=== PATIENT | male | born 1955 | race Hispanic/Latino ===

== ENCOUNTER 2019-09-20 15:01 | Inpatient (IN) | payer MEDICARE, OTHER, SELFPAY ==
[~2019-09-20] VITALS: Ht 182.9 cm; Wt 74.9 kg
[2019-09-20] MEDS ORDERED: NITROGLYCERIN 1GM/1 INCH PACKET TD ONE ×2 (15:25→22:11)
[2019-09-20] MEDS ORDERED: ASPIRIN 325 MG TABLET ONE (15:25)
[2019-09-20 15:33] LABS: BASOPHILS % (AUTO) 0.4 % (0.0-5.0); EOSINOPHILS % (AUTO) 0.3 % (0.0-8.0); HEMATOCRIT 37.8 % (42-54); LYMPHOCYTES % (AUTO) 2.9 % (21.0-51.0); MEAN CORPUSCULAR HEMOGLOBIN 27.8 pg (27.0-33.0); MEAN CORPUSCULAR HGB CONC 32.5 g/dL (32.0-36.0); MEAN CORPUSCULAR VOLUME 85.3 fL (79-99); MONOCYTES % (AUTO) 5.5 % (3.0-13.0); PLATELET COUNT (AUTO) 228 K/uL (130-400); RED BLOOD CELL COUNT(AUTO) 4.43 MIL/uL (4.50-6.20); RED CELL DISTRIBUTION WIDTH 13.7 % (11.0-15.5); WHITE BLOOD COUNT (AUTO) 18.8 K/uL (4.8-10.8)
[2019-09-20 15:48] LABS: PARTIAL THROMBOPLASTIN TIME 31.6 SEC (26.3-35.5); PROTHROMBIN TIME 10.8 SEC (9.6-11.6)
[2019-09-20 16:01] LABS: ALBUMIN 3.2 g/dL (3.5-5.0); BILIRUBIN,TOTAL 0.7 mg/dL (0.2-1.0); CREATININE 1.3 mg/dL (0.5-1.5); TOTAL PROTEIN, SERUM 6.9 g/dL (6.0-8.3)
[2019-09-20] MEDS ORDERED: CEFTRIAXONE SODIUM 1 GM ONE (16:31)
[2019-09-20] MEDS ORDERED: AZITHROMYCIN 250 MG TABLET PO ONE (16:32)
[2019-09-20] MEDS ORDERED: INSULIN HUMULIN R 100 UNIT/ML 3ML ONE (16:33)
[2019-09-20] MEDS ORDERED: SODIUM CHLORIDE 0.9% 1000ML 1,000 ML IV ONE (17:31)
[2019-09-20] MEDS ORDERED: ACETAMINOPHEN 325 MG TAB ONE (17:31)
[2019-09-20 18:01] LABS: APPEARANCE,URINE Clear (CLEAR); BILIRUBIN,URINE Negative (NEGATIVE); COLOR,URINE Yellow (YELLOW); GLUCOSE, URINE (UA) >=1000 mg/dL (NEGATIVE); KETONES,URINE Negative (NEGATIVE); LEUKOCYTE ESTERASE ,URINE Negative (NEGATIVE); NITRATE,URINE Negative (NEGATIVE); OCCULT BLOOD,URINE Small (NEGATIVE); PH,URINE 5.5 (5.0-8.0); PROTEIN,URINE POS 2+ mg/dL (NEGATIVE)
[2019-09-20 18:48] LABS: BACTERIA,URINE Few /HPF (None Seen); MUCUS,URINE Few LPF (None Seen); RBC,URINE 0-1 /HPF (0-1); SPERM,URINE Few /HPF (None Seen); SQUAMOUS EPITHELIAL CELL,UR 0-2 /HPF (0-2)
[2019-09-20] MEDS ORDERED: DEXTROSE 50%-WATER 50 ML DISP.SYRIN IV PRN (20:45)
[2019-09-20] MEDS ORDERED: ACETAMINOPHEN 325 MG TAB PO PRN (20:45)
[2019-09-20] MEDS ORDERED: ONDANSETRON HCL 4 MG/2 ML VIAL IV PRN (20:45)
[2019-09-20] MEDS: NITROGLYCERIN 1GM/1 INCH PACKET TD SCH (20:45)
[2019-09-20] MEDS ORDERED: GLUCAGON 1MG KIT 1 MG ML IM PRN (20:45)
[2019-09-20] MEDS ORDERED: MORPHINE SULFATE 2 MG/ML 1ML SYG IVP PRN (20:45)
[2019-09-20] MEDS ORDERED: GUAIFENESIN-DM 200/20 MG 10 ML PO PRN (20:45)
[2019-09-20] MEDS: FAMOTIDINE 20MG TAB 20 MG TAB PO SCH (21:00)
[2019-09-21 01:21] VITALS: BP 140/59
[2019-09-21 04:00] VITALS: BP 161/76
[2019-09-21] MEDS ORDERED: CEFTRIAXONE SODIUM 1 GM IVP SCH (04:00)
[2019-09-21 04:26] LABS: BASOPHILS % (AUTO) 0.3 % (0.0-5.0); EOSINOPHILS % (AUTO) 0.2 % (0.0-8.0); HEMATOCRIT 37.6 % (42-54); LYMPHOCYTES % (AUTO) 3.6 % (21.0-51.0); MEAN CORPUSCULAR HEMOGLOBIN 28.2 pg (27.0-33.0); MEAN CORPUSCULAR HGB CONC 33.2 g/dL (32.0-36.0); MEAN CORPUSCULAR VOLUME 84.7 fL (79-99); MONOCYTES % (AUTO) 4.7 % (3.0-13.0); NEUTROPHILS % (AUTO) 90.4 % (40.0-77.0); PLATELET COUNT (AUTO) 190 K/uL (130-400); RED BLOOD CELL COUNT(AUTO) 4.44 MIL/uL (4.50-6.20); RED CELL DISTRIBUTION WIDTH 13.7 % (11.0-15.5)
[2019-09-21 04:58] LABS: ALANINE AMINOTRANSFERASE 18 U/L (12-78); ALBUMIN 2.9 g/dL (3.5-5.0); ASPARTATE AMINOTRANSFERASE 11 U/L (10-37); BILIRUBIN,TOTAL 0.7 mg/dL (0.2-1.0); CARBON DIOXIDE 25 mmol/L (21-32); CHLORIDE 97 mmol/L (101-111); CHOLESTEROL 165 mg/dL (<200); CREATINE KINASE, TOTAL 38 U/L (21-232); CREATININE 1.1 mg/dL (0.5-1.5); GLOMERULAR FILTR. RATE CALC 71 mL/min (>60); GLUCOSE,RANDOM 320 mg/dL (70-105); HDL CHOLESTEROL 37 mg/dL (29-71); LACTATE DEHYDROGENASE 156 U/L (81-234); LDL DIRECT 113 mg/dL (0-99); MYOGLOBIN 62 ng/mL (10-92); POTASSIUM 3.9 mmol/L (3.5-5.1); SODIUM SERUM 131 mmol/L (136-145); THYROID STIMULATING HORMONE 0.96 uIU/mL (0.36-3.74); TOTAL PROTEIN, SERUM 6.7 g/dL (6.0-8.3); TRIGLYCERIDES 68 mg/dL (30-200); TROPONIN I < 0.04 ng/mL (0.00-0.06); UREA NITROGEN, BLOOD 17 mg/dL (7-18)
[2019-09-21 05:12] LABS: HEMOGLOBIN A1C 9.8 % (4.0-6.0)
[2019-09-21] MEDS: NITROGLYCERIN 1GM/1 INCH PACKET TD SCH ×3 (05:21→21:41)
[2019-09-21] MEDS: ACETAMINOPHEN 325 MG TAB PO PRN (05:21)
[2019-09-21 05:31] LABS: B-TYPE NATRIURETIC PEPTIDE 244 pg/mL (0-100)
[2019-09-21] MEDS ORDERED: SODIUM CHLORIDE 0.9% 1000ML 1,000 ML IV STA (05:58)
[2019-09-21] MEDS: ASPIRIN 81 MG EC TAB PO SCH (07:55)
[2019-09-21] MEDS: FAMOTIDINE 20MG TAB 20 MG TAB PO SCH (07:55)
[2019-09-21 08:00] VITALS: BP 122/66
--- NOTE | 2019-09-21 11:00 | NUR ---
TRANSFERRED TO ROOM 408 VIA W/C WITH BELONGINGS ACCOMPANIED BY THAIS TOUSSAINT.
--- NOTE | 2019-09-21 11:34 | NUR ---
PER PT.'S REQUEST, NOTIFIED HIS SISTER, SANDHYA PALMER, OF TRANSFER TO ROOM 408; SISTER VERBALIZED UNDERSTANDING.
[2019-09-21 11:35] VITALS: BP 132/79
[2019-09-21] MEDS ORDERED: AZITHROMYCIN 500MG+NS 250ML 250 ML IV SCH (12:00)
[2019-09-21 15:04] VITALS: BP 137/73
[2019-09-21] MEDS ORDERED: DEXTROSE 50%-WATER 50 ML DISP.SYRIN IV PRN (16:00)
[2019-09-21] MEDS ORDERED: GLUCAGON 1MG KIT 1 MG ML IM PRN (16:00)
[2019-09-21] MEDS: INSULIN HUMULIN R 100 UNIT/ML 3ML SQ SCH ×2 (16:50→21:43)
[2019-09-21 20:02] VITALS: BP 144/72
[2019-09-21] MEDS: CEFTRIAXONE SODIUM 1 GM IVP SCH (21:41)
[2019-09-22] VITALS (7 sets, daily range): BP systolic 134–159; BP diastolic 61–97
[2019-09-22] MEDS: ACETAMINOPHEN 325 MG TAB PO PRN (04:16)
[2019-09-22] MEDS: NITROGLYCERIN 1GM/1 INCH PACKET TD SCH ×3 (04:17→21:11)
--- NOTE | 2019-09-22 04:24 | NUR ---
TYLENOL 650MG GIVEN PO D/T TEMP OF 101.2, ICE PACKS PLACED ON PT TO FOREHEAD AND NECK. PT DENIES CHILLS OR PAIN.
--- NOTE | 2019-09-22 05:00 | NUR ---
TEMP 100.1, PT CONTINUES WITH ICE PACKS ON.
--- NOTE | 2019-09-22 05:25 | NUR ---
TEMP 98.1, REMOVED ICE PACKS.
[2019-09-22] MEDS: INSULIN HUMULIN R 100 UNIT/ML 3ML SQ SCH ×4 (05:56→21:14)
[2019-09-22] MEDS: FAMOTIDINE 20MG TAB 20 MG TAB PO SCH (09:30)
[2019-09-22] MEDS: CEFTRIAXONE SODIUM 1 GM IVP SCH ×2 (09:31→21:11)
[2019-09-22] MEDS: ASPIRIN 81 MG EC TAB PO SCH (09:31)
[2019-09-22] MEDS: AZITHROMYCIN 500MG+NS 250ML 250 ML IV SCH (09:31)
--- NOTE | 2019-09-22 11:19 | NUR ---
1110 BPCI Letter given to patient.
--- NOTE | 2019-09-22 16:56 | NUR ---
cm note met with patient and states resides at home with his sister louis, ambulates short distance with walker, and uses w/c mostly. has Rt. CRISTINAA sister assists with transport and assists him as needed for bath, adls[place]. [place] feels safe to return, provided information on [facility]. pt requesting provider services info. Addendum: 09/22/19 at 1818 by COLT GOODMAN CM Amended: Links added.
[2019-09-22 20:38] LABS: CREATININE 1.1 mg/dL (0.5-1.5); POTASSIUM 3.7 mmol/L (3.5-5.1)
[2019-09-22] MEDS: INSULIN GLARGINE 100 UNITS/ML 10 ML VIAL SQ SCH (21:12)
[2019-09-23 03:00] VITALS: BP 157/87
[2019-09-23] MEDS: NITROGLYCERIN 1GM/1 INCH PACKET TD SCH ×3 (04:25→20:30)
[2019-09-23 05:04] LABS: BASOPHILS % (AUTO) 0.2 % (0.0-5.0); HEMATOCRIT 33.6 % (42-54); LYMPHOCYTES % (AUTO) 3.2 % (21.0-51.0); MEAN CORPUSCULAR HEMOGLOBIN 27.9 pg (27.0-33.0); MEAN CORPUSCULAR VOLUME 84.4 fL (79-99); MONOCYTES % (AUTO) 6.1 % (3.0-13.0); NEUTROPHILS % (AUTO) 88.9 % (40.0-77.0); PLATELET COUNT (AUTO) 125 K/uL (130-400); RED BLOOD CELL COUNT(AUTO) 3.98 MIL/uL (4.50-6.20); RED CELL DISTRIBUTION WIDTH 14.1 % (11.0-15.5); WHITE BLOOD COUNT (AUTO) 12.4 K/uL (4.8-10.8)
[2019-09-23] MEDS: INSULIN HUMULIN R 100 UNIT/ML 3ML SQ SCH ×4 (05:51→21:00)
[2019-09-23 08:00] VITALS: BP 161/88
[2019-09-23] MEDS: ASPIRIN 81 MG EC TAB PO SCH (08:57)
[2019-09-23] MEDS: FAMOTIDINE 20MG TAB 20 MG TAB PO SCH (08:57)
[2019-09-23] MEDS: AZITHROMYCIN 500MG+NS 250ML 250 ML IV SCH (08:57)
[2019-09-23] MEDS: CEFTRIAXONE SODIUM 1 GM IVP SCH ×2 (08:57→20:30)
[2019-09-23] MEDS: INSULIN LISPRO 100 UNIT/ML 3ML SQ SCH ×3 (09:02→18:34)
[2019-09-23] MEDS ORDERED: DOXYCYCLINE 100MG+NS 250ML 250 ML IV SCH (10:00)
[2019-09-23] MEDS: SODIUM CHLORIDE 0.9% 1000ML 1,000 ML IV SCH ×2 (10:00→22:05)
[2019-09-23 10:38] LABS: ALBUMIN 2.1 g/dL (3.5-5.0); BILIRUBIN,DIRECT 0.3 mg/dL (0.0-0.3); BILIRUBIN,TOTAL 0.5 mg/dL (0.2-1.0); TOTAL PROTEIN, SERUM 6.2 g/dL (6.0-8.3)
[2019-09-23 12:00] VITALS: BP 125/54
[2019-09-23] MEDS: DOXYCYCLINE HYCLATE 100 MG TABLET PO SCH ×2 (12:32→20:30)
[2019-09-23 16:00] VITALS: BP 162/92
[2019-09-23] MEDS: ACETAMINOPHEN 325 MG TAB PO PRN (16:30)
[2019-09-23 19:00] VITALS: BP 134/68
[2019-09-23] MEDS: INSULIN GLARGINE 100 UNITS/ML 10 ML VIAL SQ SCH (21:00)
[2019-09-24] VITALS: BP 118/68
[2019-09-24 04:00] VITALS: BP 133/70
[2019-09-24] MEDS: NITROGLYCERIN 1GM/1 INCH PACKET TD SCH ×3 (05:22→21:29)
[2019-09-24] MEDS: INSULIN HUMULIN R 100 UNIT/ML 3ML SQ SCH ×4 (06:12→21:00)
[2019-09-24 07:02] LABS: BASOPHILS % (AUTO) 0.3 % (0.0-5.0); EOSINOPHILS % (AUTO) 0.1 % (0.0-8.0); HEMATOCRIT 33.7 % (42-54); MEAN CORPUSCULAR HEMOGLOBIN 27.3 pg (27.0-33.0); MEAN CORPUSCULAR HGB CONC 32.6 g/dL (32.0-36.0); MEAN CORPUSCULAR VOLUME 83.6 fL (79-99); MONOCYTES % (AUTO) 6.6 % (3.0-13.0); NEUTROPHILS % (AUTO) 86.7 % (40.0-77.0); PLATELET COUNT (AUTO) 97 K/uL (130-400); RED BLOOD CELL COUNT(AUTO) 4.03 MIL/uL (4.50-6.20); RED CELL DISTRIBUTION WIDTH 14.6 % (11.0-15.5); WHITE BLOOD COUNT (AUTO) 17.6 K/uL (4.8-10.8)
[2019-09-24 08:00] VITALS: BP_SYST 147; BP_SYST 150; BP_DIAS 77; BP_DIAS 80
[2019-09-24] MEDS: FAMOTIDINE 20MG TAB 20 MG TAB PO SCH (08:37)
[2019-09-24] MEDS: DOXYCYCLINE HYCLATE 100 MG TABLET PO SCH ×2 (08:37→21:28)
[2019-09-24] MEDS: ASPIRIN 81 MG EC TAB PO SCH (08:37)
[2019-09-24] MEDS: CEFTRIAXONE SODIUM 1 GM IVP SCH (08:39)
[2019-09-24] MEDS: INSULIN LISPRO 100 UNIT/ML 3ML SQ SCH ×3 (08:47→17:00)
[2019-09-24 11:22] VITALS: BP 171/79
[2019-09-24] MEDS: SODIUM CHLORIDE 0.9% 1000ML 1,000 ML IV SCH (12:40)
[2019-09-24] MEDS: ZOSYN 3.375GM+NS 50ML 50 ML IV SCH ×2 (13:05→21:28)
[2019-09-24 16:00] VITALS: BP 156/74
[2019-09-24 20:24] VITALS: BP 110/65
[2019-09-24] MEDS: INSULIN GLARGINE 100 UNITS/ML 10 ML VIAL SQ SCH (21:00)
--- NOTE | 2019-09-24 23:00 | NUR ---
PT IS POSITIVE FOR GRAM NEGATIVE RODS. AKIYEMI AWARE. STARTED PT ON ZOSYN. TO CONTINUE DOXYCYCLINE. STILL LACK OF APPETITE. NO FEVERS AT THIS TIME. SPOKE TO SISTER, UPDATED ON PTS STATUS.
[2019-09-25] VITALS (7 sets, daily range): BP systolic 105–157; BP diastolic 62–82
[2019-09-25 04:29] LABS: BASOPHILS % (AUTO) 0.2 % (0.0-5.0); EOSINOPHILS % (AUTO) 0.1 % (0.0-8.0); HEMATOCRIT 33.3 % (42-54); LYMPHOCYTES % (AUTO) 6.8 % (21.0-51.0); MEAN CORPUSCULAR HEMOGLOBIN 27.1 pg (27.0-33.0); MEAN CORPUSCULAR HGB CONC 32.4 g/dL (32.0-36.0); MEAN CORPUSCULAR VOLUME 83.7 fL (79-99); MONOCYTES % (AUTO) 7.7 % (3.0-13.0); NEUTROPHILS % (AUTO) 84.6 % (40.0-77.0); PLATELET COUNT (AUTO) 88 K/uL (130-400); RED BLOOD CELL COUNT(AUTO) 3.98 MIL/uL (4.50-6.20); RED CELL DISTRIBUTION WIDTH 14.6 % (11.0-15.5); WHITE BLOOD COUNT (AUTO) 17.8 K/uL (4.8-10.8)
[2019-09-25 04:42] LABS: CREATININE 1.1 mg/dL (0.5-1.5); MAGNESIUM 2.3 mg/dL (1.80-2.40); PHOSPHORUS 3.5 mg/dL (2.5-4.9); POTASSIUM 3.2 mmol/L (3.5-5.1)
[2019-09-25] MEDS: ZOSYN 3.375GM+NS 50ML 50 ML IV SCH ×3 (04:55→20:28)
[2019-09-25] MEDS: NITROGLYCERIN 1GM/1 INCH PACKET TD SCH ×3 (04:56→20:29)
[2019-09-25] MEDS: INSULIN HUMULIN R 100 UNIT/ML 3ML SQ SCH ×3 (05:18→16:30)
[2019-09-25] MEDS ORDERED: POTASSIUM CHLORIDE 20MEQ/100ML 100 ML IV PRN (06:00)
[2019-09-25] MEDS ORDERED: POTASSIUM CHLORIDE 10% ELIXIR 20 MEQ/15 ML UDCUP PO PRN (06:00)
[2019-09-25] MEDS ORDERED: MAGNESIUM 2GM PREMIX 50ML 50 ML IV PRN (06:00)
[2019-09-25] MEDS ORDERED: LIDOCAINE HCL-MPF 1% 2ML VIAL IV PRN (06:00)
[2019-09-25] MEDS ORDERED: SODIUM CHLORIDE 0.9% 1000ML 1,000 ML IV ONE (06:12)
[2019-09-25] MEDS: POTASSIUM CHLORIDE 20 MEQ ERTAB PO PRN (06:14)
--- NOTE | 2019-09-25 07:50 | NUR ---
ASSESSMENT ENCOUNTERED PT A&OX3, CALM COOPERATIVE AND DOES NOT APPEAR TO BE IN ANY DISTRESS NOR ANY NEURO DEFICITS PRESENT. 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 PT IS ABLE TO TOLERATE FOODS, FLUIDS AND MEDICATION WITH NO THROAT CLEARING OR COUGH. CALL LIGHT WITHIN REACH.
[2019-09-25] MEDS: DOXYCYCLINE HYCLATE 100 MG TABLET PO SCH ×2 (10:44→20:29)
[2019-09-25] MEDS: ASPIRIN 81 MG EC TAB PO SCH (10:44)
[2019-09-25] MEDS: METOPROLOL TARTRATE 25 MG TAB PO SCH ×2 (10:45→20:29)
[2019-09-25] MEDS: FAMOTIDINE 20MG TAB 20 MG TAB PO SCH (10:45)
[2019-09-25] MEDS: INSULIN LISPRO 100 UNIT/ML 3ML SQ SCH ×4 (12:00→20:38)
[2019-09-25] MEDS: SODIUM CHLORIDE 0.9% 1000ML 1,000 ML IV SCH ×2 (17:42→22:07)
[2019-09-25] MEDS: INSULIN GLARGINE 100 UNITS/ML 10 ML VIAL SQ SCH (22:06)
[2019-09-26] VITALS (7 sets, daily range): BP systolic 125–178; BP diastolic 58–92
[2019-09-26 03:47] LABS: BASOPHILS % (AUTO) 0.2 % (0.0-5.0); EOSINOPHILS % (AUTO) 0.1 % (0.0-8.0); HEMATOCRIT 33.7 % (42-54); LYMPHOCYTES % (AUTO) 7.5 % (21.0-51.0); MEAN CORPUSCULAR HEMOGLOBIN 27.6 pg (27.0-33.0); MEAN CORPUSCULAR HGB CONC 33.5 g/dL (32.0-36.0); MEAN CORPUSCULAR VOLUME 82.4 fL (79-99); MONOCYTES % (AUTO) 8.3 % (3.0-13.0); NEUTROPHILS % (AUTO) 83.1 % (40.0-77.0); PLATELET COUNT (AUTO) 111 K/uL (130-400); RED BLOOD CELL COUNT(AUTO) 4.09 MIL/uL (4.50-6.20); RED CELL DISTRIBUTION WIDTH 14.6 % (11.0-15.5); WHITE BLOOD COUNT (AUTO) 13.8 K/uL (4.8-10.8)
[2019-09-26 04:01] LABS: CREATININE 0.8 mg/dL (0.5-1.5); POTASSIUM 3.3 mmol/L (3.5-5.1)
[2019-09-26] MEDS: POTASSIUM CHLORIDE 20 MEQ ERTAB PO PRN ×2 (04:23→06:41)
[2019-09-26] MEDS: NITROGLYCERIN 1GM/1 INCH PACKET TD SCH ×3 (04:24→20:26)
[2019-09-26] MEDS: ZOSYN 3.375GM+NS 50ML 50 ML IV SCH (04:24)
[2019-09-26] MEDS: INSULIN LISPRO 100 UNIT/ML 3ML SQ SCH ×7 (05:53→20:24)
[2019-09-26] MEDS: SODIUM CHLORIDE 0.9% 1000ML 1,000 ML IV SCH (08:55)
[2019-09-26] MEDS: DOXYCYCLINE HYCLATE 100 MG TABLET PO SCH (09:00)
[2019-09-26] MEDS: FAMOTIDINE 20MG TAB 20 MG TAB PO SCH (09:00)
[2019-09-26] MEDS: METOPROLOL TARTRATE 25 MG TAB PO SCH ×2 (09:00→20:25)
[2019-09-26] MEDS: ASPIRIN 81 MG EC TAB PO SCH (09:00)
--- NOTE | 2019-09-26 14:35 | NUR ---
CM Note: [facility] pending approval CM met with pt discussed MD recommendations, pt does not have a stable consistent daily ride to [facility] MD aware, now agreeable for SNF, MARY ANN signed for [facility]. Faxed order, clinicals, PT PASRR, Covid Assessment to [facility], confirmation received. Spoke to Nyla perry dcp tomorrow/once approved. Pt pending approval. EMS arranged and faxed for tomorrow, [facility] once pt ready to [facility]. Primary nurse aware. CM to cont to follow up.
[2019-09-26] MEDS: MEROPENEM 1 GM VIAL IVP SCH ×2 (15:26→20:26)
[2019-09-26 17:10] LABS: ROCKY MT SPOTTED FEVER IGG <1:64 (Neg:<1:64); TYPHUS FEVER AB IGG <1:64 (Neg:<1:64)
[2019-09-26] MEDS ORDERED: PHARMACY COMMUNICATION MISC SCH (18:30)
[2019-09-26] MEDS: INSULIN GLARGINE 100 UNITS/ML 10 ML VIAL SQ SCH (20:25)
[2019-09-27] MEDS: SODIUM CHLORIDE 0.9% 1000ML 1,000 ML IV SCH ×2 (04:01→11:35)
[2019-09-27 04:13] VITALS: BP 132/93
[2019-09-27] MEDS: MEROPENEM 1 GM VIAL IVP SCH ×3 (05:00→20:03)
[2019-09-27] MEDS: NITROGLYCERIN 1GM/1 INCH PACKET TD SCH ×3 (05:00→20:06)
[2019-09-27] MEDS: INSULIN LISPRO 100 UNIT/ML 3ML SQ SCH ×7 (06:51→20:07)
[2019-09-27 08:00] VITALS: BP 147/72
--- NOTE | 2019-09-27 08:00 | NUR ---
ASSESSMENT PT IS AAOX3 DENIES CP DENIES SOB DENIES NV NO COMPLAINTS. RESTING IN BED. CALL LIGHT WITHIN REACH.
[2019-09-27] MEDS: FAMOTIDINE 20MG TAB 20 MG TAB PO SCH (08:14)
[2019-09-27] MEDS: METOPROLOL TARTRATE 25 MG TAB PO SCH ×2 (08:14→20:03)
[2019-09-27] MEDS: ASPIRIN 81 MG EC TAB PO SCH (08:14)
--- NOTE | 2019-09-27 09:27 | NUR ---
CM Note: [facility] approval CM spoke to Nyla edwards, pt has approval. EMS arranged and faxed for today, primary nurse to call [facility] once pt ready to DC. primary nurse aware. CM to cont to follow up.
--- NOTE | 2019-09-27 10:56 | NUR ---
RDSCREEN - LOS X 7 Pt pending discharge. Admitted with Atypical chest pain. Pt reports fair appetite with PO intake at 75%, no report of GI distress. Pt Hx of Diabetes, HTN, L-BKA. Monitored labs: Na 129, K 3.3, Cl 97, Alb 2.1, BG 139. Pt interviewed via phone secondary to Isolation protocol. Recommend Glucerna QD Recommend continue 60gm CCD RD to continue to monitor. Please notify as additional nutrition concerns arise. Thank you. Addendum: 09/27/19 at [address] Amended: Links added.
--- NOTE | 2019-09-27 11:09 | NUR ---
CM Note: spoke to pt and sister CM met with pt, as per PEDICAB DRIVER pt had changed his mind regarding [facility] Discussed w/pt the need for placement as pt does not have a consistent daily ride for outpatient IV therapy and pt still weak. Pt aware has approval for [facility] to continue IV treatments as well as for PT. Pt verbalized understanding, agreeable to transfer to [facility] requested to have sister Elena be called to be updated. Called sister Elena in pt's room, given updated w/POC, sister is aware, asked what time pt will be transferred, informed sister some time this afternoon via EMS, sister verbalized understanding said she will call son to give heads up. Primary nurse aware pt is still agreeable for transfer today via EMS.primary nurse to call [facility] once pt ready to DC. CM to cont to follow.
[2019-09-27 12:00] VITALS: BP 130/57
--- NOTE | 2019-09-27 14:08 | NUR ---
DC CANCELLED BY DR HENRY AND Guillermo LANG ACCOUNTING PROFESSOR PATIENT AND SISTER MADE AWARE
[2019-09-27 16:00] VITALS: BP 149/69
[2019-09-27] MEDS ORDERED: DIATR MEGLU/DIATRIZOATE SODIUM 30 ML BOTTLE ONE (16:06)
[2019-09-27] MEDS ORDERED: IOHEXOL-350 75 ML VIAL IV ONE (18:23)
[2019-09-27] MEDS: INSULIN GLARGINE 100 UNITS/ML 10 ML VIAL SQ SCH (20:07)
[2019-09-27 20:44] VITALS: BP 148/73
[2019-09-28 00:22] VITALS: BP 145/71
[2019-09-28] MEDS: SODIUM CHLORIDE 0.9% 1000ML 1,000 ML IV SCH (01:35)
[2019-09-28 04:17] VITALS: BP 141/89
[2019-09-28] MEDS: MEROPENEM 1 GM VIAL IVP SCH ×3 (04:25→20:52)
[2019-09-28] MEDS: NITROGLYCERIN 1GM/1 INCH PACKET TD SCH (04:26)
[2019-09-28] MEDS: INSULIN LISPRO 100 UNIT/ML 3ML SQ SCH ×7 (06:31→20:57)
[2019-09-28 07:30] VITALS: BP 148/72
[2019-09-28] MEDS: ASPIRIN 81 MG EC TAB PO SCH (07:53)
[2019-09-28] MEDS: METOPROLOL TARTRATE 25 MG TAB PO SCH ×2 (07:53→20:52)
[2019-09-28] MEDS: FAMOTIDINE 20MG TAB 20 MG TAB PO SCH (07:53)
--- NOTE | 2019-09-28 08:00 | NUR ---
ASSESSMENT PT IS AAOX3 DENIES CP DENIES SOB DENIES NV NO COMPLAINTS SITTING UP IN BED, AM MEDS GIVEN. CALL LIGHT WITHIN REACH.
[2019-09-28 11:00] VITALS: BP 145/66
--- NOTE | 2019-09-28 12:23 | NUR ---
1110 transfer request for surgical service since no surgeon oc at [facility]. information fax to [facility] [address] [facility] which states no beds full to capacity. primary nurse made aware. Ricci clements
[2019-09-28 16:00] VITALS: BP 114/56
[2019-09-28 20:00] VITALS: BP 129/58
[2019-09-28] MEDS: INSULIN GLARGINE 100 UNITS/ML 10 ML VIAL SQ SCH (20:56)
[2019-09-29] VITALS (7 sets, daily range): BP systolic 117–145; BP diastolic 57–70
[2019-09-29 03:51] LABS: BASOPHILS % (AUTO) 0.3 % (0.0-5.0); EOSINOPHILS % (AUTO) 0.3 % (0.0-8.0); LYMPHOCYTES % (AUTO) 9.5 % (21.0-51.0); MEAN CORPUSCULAR HEMOGLOBIN 27.2 pg (27.0-33.0); MEAN CORPUSCULAR HGB CONC 32.5 g/dL (32.0-36.0); MEAN CORPUSCULAR VOLUME 83.6 fL (79-99); MONOCYTES % (AUTO) 7.8 % (3.0-13.0); NEUTROPHILS % (AUTO) 80.6 % (40.0-77.0); PLATELET COUNT (AUTO) 291 K/uL (130-400); RED BLOOD CELL COUNT(AUTO) 3.83 MIL/uL (4.50-6.20); RED CELL DISTRIBUTION WIDTH 14.6 % (11.0-15.5); WHITE BLOOD COUNT (AUTO) 21.2 K/uL (4.8-10.8)
[2019-09-29 04:29] LABS: ALBUMIN 1.6 g/dL (3.5-5.0); BILIRUBIN,TOTAL 0.6 mg/dL (0.2-1.0); CREATININE 0.8 mg/dL (0.5-1.5); CRP QUANTITATIVE 156.5 mg/L (0.00-9.0); MAGNESIUM 2.2 mg/dL (1.80-2.40); PHOSPHORUS 2.5 mg/dL (2.5-4.9); POTASSIUM 3.1 mmol/L (3.5-5.1); TOTAL PROTEIN, SERUM 5.9 g/dL (6.0-8.3)
[2019-09-29 04:47] LABS: ERYTHROCYTE SEDIMENTATION RATE 60 MM/HR (0-20)
[2019-09-29] MEDS: INSULIN LISPRO 100 UNIT/ML 3ML SQ SCH ×7 (06:46→21:00)
[2019-09-29] MEDS: MEROPENEM 1 GM VIAL IVP SCH ×3 (06:46→20:37)
[2019-09-29] MEDS: POTASSIUM CHLORIDE 20 MEQ ERTAB PO PRN ×3 (06:47→20:38)
--- NOTE | 2019-09-29 07:24 | NUR ---
LATE ENTRY; 09/28/19 21:22, SPOKE WITH KENNY CALVINFOREST TECHNICIAN AT [facility]; HE STATES THEY ARE STILL AT CAPACITY AND ARE UNABLE TO ACCEPT THE PATIENT AT THIS TIME.
[2019-09-29] MEDS: ASPIRIN 81 MG EC TAB PO SCH (09:05)
[2019-09-29] MEDS: FAMOTIDINE 20MG TAB 20 MG TAB PO SCH (09:05)
[2019-09-29] MEDS: METOPROLOL TARTRATE 25 MG TAB PO SCH ×2 (09:05→20:38)
--- NOTE | 2019-09-29 20:56 | NUR ---
TRANSFER CALL PLACED TO [facility] TO INITIATE TRANSFER. HE STATES HE HAS NO BEDS AVAILABLE. TRANSFER DENIED
[2019-09-29] MEDS: INSULIN GLARGINE 100 UNITS/ML 10 ML VIAL SQ SCH (21:03)
[2019-09-30 03:17] VITALS: BP 147/74
[2019-09-30] MEDS: MEROPENEM 1 GM VIAL IVP SCH ×3 (04:26→20:09)
[2019-09-30] MEDS: INSULIN LISPRO 100 UNIT/ML 3ML SQ SCH ×7 (05:27→20:55)
[2019-09-30 07:00] VITALS: BP 106/69
[2019-09-30] MEDS: ASPIRIN 81 MG EC TAB PO SCH (08:26)
[2019-09-30] MEDS: METOPROLOL TARTRATE 25 MG TAB PO SCH ×2 (08:26→20:09)
[2019-09-30] MEDS: FAMOTIDINE 20MG TAB 20 MG TAB PO SCH (08:26)
[2019-09-30 11:00] VITALS: BP 181/73
--- NOTE | 2019-09-30 12:22 | NUR ---
1125 transfer follow up met with pt and sister inform of transfer process, information has been sent to [facility] since Dr Kaminski agreed to be the accepting doctor, both verbalized understanding and both agreed on [facility]. both state other hospitals will be to far to travel. 1150 Spoke with [facility] no bed still holding in ER , encourage to try next shift. Ricci clements
[2019-09-30] MEDS ORDERED: LACTULOSE 20 GM/30 ML UDCUP PO PRN (12:30)
[2019-09-30 15:30] VITALS: BP 155/69
[2019-09-30] MEDS: DOCUSATE SODIUM 100 MG CAP PO SCH (20:09)
[2019-09-30 20:11] VITALS: BP 163/68
[2019-09-30] MEDS: INSULIN GLARGINE 100 UNITS/ML 10 ML VIAL SQ SCH (20:13)
[2019-09-30] MEDS: POTASSIUM CHLORIDE 20 MEQ ERTAB PO PRN (20:59)
--- NOTE | 2019-09-30 23:16 | NUR ---
TRANSFER CALL PLACED TO [facility] CAROUSEL OPERATOR FOR UPDATE ON POSSIBLE TRANSFER. SHE STATES SHE HAS NO BEDS AVAILABLE. TRANSFER DENIED
[2019-10-01] VITALS (7 sets, daily range): BP systolic 130–164; BP diastolic 52–80
[2019-10-01 04:35] LABS: HEMATOCRIT 33.4 % (42-54); MEAN CORPUSCULAR HEMOGLOBIN 27.2 pg (27.0-33.0); MEAN CORPUSCULAR HGB CONC 32.3 g/dL (32.0-36.0); MEAN CORPUSCULAR VOLUME 84.1 fL (79-99); RED BLOOD CELL COUNT(AUTO) 3.97 MIL/uL (4.50-6.20); RED CELL DISTRIBUTION WIDTH 14.4 % (11.0-15.5); WHITE BLOOD COUNT (AUTO) 12.7 K/uL (4.8-10.8)
[2019-10-01] MEDS: MEROPENEM 1 GM VIAL IVP SCH ×3 (04:41→21:31)
[2019-10-01 04:45] LABS: CREATININE 0.7 mg/dL (0.5-1.5); POTASSIUM 4.2 mmol/L (3.5-5.1)
[2019-10-01] MEDS: INSULIN LISPRO 100 UNIT/ML 3ML SQ SCH ×7 (06:34→21:00)
[2019-10-01] MEDS: DOCUSATE SODIUM 100 MG CAP PO SCH ×2 (08:16→21:31)
[2019-10-01] MEDS: FAMOTIDINE 20MG TAB 20 MG TAB PO SCH (08:16)
[2019-10-01] MEDS: ASPIRIN 81 MG EC TAB PO SCH (08:16)
[2019-10-01] MEDS: METOPROLOL TARTRATE 25 MG TAB PO SCH ×2 (08:16→21:31)
--- NOTE | 2019-10-01 11:49 | NUR ---
DR. Ridge HENRY IN ROOM SPEAKING WITH PT.
[2019-10-01] MEDS: INSULIN GLARGINE 100 UNITS/ML 10 ML VIAL SQ SCH (21:35)
[2019-10-02] MEDS: MEROPENEM 1 GM VIAL IVP SCH ×3 (04:27→22:04)
[2019-10-02 05:10] VITALS: BP 156/67
[2019-10-02 05:15] LABS: BASOPHILS % (AUTO) 0.4 % (0.0-5.0); EOSINOPHILS % (AUTO) 0.8 % (0.0-8.0); HEMATOCRIT 33.6 % (42-54); LYMPHOCYTES % (AUTO) 19.1 % (21.0-51.0); MEAN CORPUSCULAR HEMOGLOBIN 27.4 pg (27.0-33.0); MEAN CORPUSCULAR HGB CONC 32.4 g/dL (32.0-36.0); MEAN CORPUSCULAR VOLUME 84.4 fL (79-99); MONOCYTES % (AUTO) 6.5 % (3.0-13.0); NEUTROPHILS % (AUTO) 72.6 % (40.0-77.0); PLATELET COUNT (AUTO) 468 K/uL (130-400); RED BLOOD CELL COUNT(AUTO) 3.98 MIL/uL (4.50-6.20); RED CELL DISTRIBUTION WIDTH 14.2 % (11.0-15.5); WHITE BLOOD COUNT (AUTO) 11.5 K/uL (4.8-10.8)
[2019-10-02 05:37] LABS: ALBUMIN 1.9 g/dL (3.5-5.0); BILIRUBIN,TOTAL 0.4 mg/dL (0.2-1.0); CREATININE 0.8 mg/dL (0.5-1.5); TOTAL PROTEIN, SERUM 5.9 g/dL (6.0-8.3)
[2019-10-02] MEDS: INSULIN LISPRO 100 UNIT/ML 3ML SQ SCH ×7 (05:46→21:00)
[2019-10-02 08:09] VITALS: BP 152/68
--- NOTE | 2019-10-02 08:20 | NUR ---
NPO UNTIL SEEN BY SURGEON TODAY.
[2019-10-02] MEDS: ASPIRIN 81 MG EC TAB PO SCH (10:42)
[2019-10-02] MEDS: FAMOTIDINE 20MG TAB 20 MG TAB PO SCH (10:42)
[2019-10-02] MEDS: METOPROLOL TARTRATE 25 MG TAB PO SCH ×2 (10:42→22:04)
[2019-10-02] MEDS: DOCUSATE SODIUM 100 MG CAP PO SCH ×2 (10:42→22:04)
[2019-10-02 12:04] VITALS: BP 141/70
--- NOTE | 2019-10-02 14:36 | NUR ---
KHOI DOAN WITH DR. SHEETS IN TO SEE PT. WILL DISCUSS WITH DR. SHEETS AND CALL BACK WITH ORDERS.
[2019-10-02] MEDS ORDERED: CHLORPROMAZINE HCL 25 MG/ML 1ML AMP IM SCH (14:45)
[2019-10-02] MEDS ORDERED: BISACODYL 10 MG SUPP.RECT RC SCH (14:45)
[2019-10-02 16:55] VITALS: BP 148/68
--- NOTE | 2019-10-02 19:06 | NUR ---
TO RAD. DEPT FOR HIDA SCAN
[2019-10-02] MEDS: INSULIN GLARGINE 100 UNITS/ML 10 ML VIAL SQ SCH (21:00)
[2019-10-02 21:30] VITALS: BP 139/76
[2019-10-02 23:55] VITALS: BP 123/51
[2019-10-03 03:37] LABS: BASOPHILS % (AUTO) 0.5 % (0.0-5.0); EOSINOPHILS % (AUTO) 1.2 % (0.0-8.0); HEMATOCRIT 30.3 % (42-54); LYMPHOCYTES % (AUTO) 25.5 % (21.0-51.0); MEAN CORPUSCULAR HEMOGLOBIN 26.9 pg (27.0-33.0); MEAN CORPUSCULAR HGB CONC 31.7 g/dL (32.0-36.0); MEAN CORPUSCULAR VOLUME 84.9 fL (79-99); MONOCYTES % (AUTO) 6.5 % (3.0-13.0); NEUTROPHILS % (AUTO) 65.8 % (40.0-77.0); PLATELET COUNT (AUTO) 448 K/uL (130-400); RED BLOOD CELL COUNT(AUTO) 3.57 MIL/uL (4.50-6.20); WHITE BLOOD COUNT (AUTO) 9.8 K/uL (4.8-10.8)
[2019-10-03 03:54] VITALS: BP 147/66
[2019-10-03 04:10] LABS: CARBON DIOXIDE 30 mmol/L (21-32); CHLORIDE 102 mmol/L (101-111); CREATININE 0.7 mg/dL (0.5-1.5); GLOMERULAR FILTR. RATE CALC 120 mL/min (>60); GLUCOSE,RANDOM 84 mg/dL (70-105); PHOSPHORUS 3.8 mg/dL (2.5-4.9); POTASSIUM 4.4 mmol/L (3.5-5.1); SODIUM SERUM 135 mmol/L (136-145); UREA NITROGEN, BLOOD 11 mg/dL (7-18)
[2019-10-03] MEDS: MEROPENEM 1 GM VIAL IVP SCH ×3 (06:43→19:58)
[2019-10-03] MEDS: INSULIN LISPRO 100 UNIT/ML 3ML SQ SCH ×7 (06:47→20:04)
[2019-10-03 07:53] VITALS: BP 133/65
[2019-10-03] MEDS: FAMOTIDINE 20MG TAB 20 MG TAB PO SCH (08:31)
[2019-10-03] MEDS: METOPROLOL TARTRATE 25 MG TAB PO SCH ×2 (08:32→19:59)
[2019-10-03] MEDS: DOCUSATE SODIUM 100 MG CAP PO SCH ×2 (08:32→20:04)
[2019-10-03] MEDS: ASPIRIN 81 MG EC TAB PO SCH (08:32)
[2019-10-03 11:46] VITALS: BP 136/59
[2019-10-03 16:00] VITALS: BP 134/52
[2019-10-03 19:30] VITALS: BP 185/67
[2019-10-03] MEDS: INSULIN GLARGINE 100 UNITS/ML 10 ML VIAL SQ SCH (20:04)
[2019-10-04] VITALS (21 sets, daily range): BP systolic 103–164; BP diastolic 49–87
[2019-10-04 04:37] LABS: HEMATOCRIT 33.2 % (42-54); MEAN CORPUSCULAR HEMOGLOBIN 27.2 pg (27.0-33.0); MEAN CORPUSCULAR HGB CONC 32.2 g/dL (32.0-36.0); MEAN CORPUSCULAR VOLUME 84.5 fL (79-99); RED BLOOD CELL COUNT(AUTO) 3.93 MIL/uL (4.50-6.20); RED CELL DISTRIBUTION WIDTH 13.9 % (11.0-15.5); WHITE BLOOD COUNT (AUTO) 11.6 K/uL (4.8-10.8)
[2019-10-04 04:49] LABS: INR 1.02 (0.85-1.15); PARTIAL THROMBOPLASTIN TIME 30.7 SEC (26.3-35.5)
[2019-10-04 04:50] LABS: CREATININE 0.8 mg/dL (0.5-1.5); POTASSIUM 4.7 mmol/L (3.5-5.1)
[2019-10-04] MEDS: MEROPENEM 1 GM VIAL IVP SCH ×3 (04:59→21:44)
[2019-10-04] MEDS: INSULIN LISPRO 100 UNIT/ML 3ML SQ SCH ×7 (05:31→21:00)
[2019-10-04] MEDS: ASPIRIN 81 MG EC TAB PO SCH (08:07)
[2019-10-04] MEDS: FAMOTIDINE 20MG TAB 20 MG TAB PO SCH (08:08)
[2019-10-04] MEDS: DOCUSATE SODIUM 100 MG CAP PO SCH ×2 (08:08→21:40)
[2019-10-04] MEDS: METOPROLOL TARTRATE 25 MG TAB PO SCH ×2 (08:08→21:40)
--- NOTE | 2019-10-04 11:18 | NUR ---
RD FOLLOW UP Pt NPO at time of screen, pending possible Lap/Open Cholecystectomy as per EMR. Monitored labs: Na 132, Cl 99, Alb 1.9. Once diet resumed, Recommend 60mL ProMod BID Recommend resume diet order when medically feasible. RD to continue to monitor. Please notify as additional nutrition concerns arise. Thank you. Addendum: 10/04/19 at [address] Amended: Links added.
--- NOTE | 2019-10-04 16:55 | NUR ---
PT. REFUSED CO-VID TESTING. INFORMED PT. TESTING ORDERED FOR POSSIBLE PLACEMENT PER CM; PT. STATES HE WILL BE GOING HOME AFTER DISCHARGE, DOES NOT WANT TO BE PLACED IN ANY FACILITY AFTER DISCHARGE. PT.'S SPOUSE AT BEDSIDE WHEN PT. VOICED HIS DECISION.
--- NOTE | 2019-10-04 17:23 | NUR ---
TO O.R. VIA BED ACCOMPANIED BY HOLDING AREA RN.
[2019-10-04] MEDS ORDERED: LIDOCAINE PF 2% 5ML ABBOJECT ONE (18:20)
[2019-10-04] MEDS ORDERED: FENTANYL CITRATE PF 50 MCG/1 ML 2ML VIAL ONE ×2 (18:21→19:27)
[2019-10-04] MEDS ORDERED: GLYCOPYRROLATE 1 MG/5 ML SYRINGE ONE (18:21)
[2019-10-04] MEDS ORDERED: ONDANSETRON HCL 4 MG/2 ML VIAL ONE (18:21)
[2019-10-04] MEDS ORDERED: PROPOFOL 10 MG/ML 20ML VIAL IV ONE (18:22)
[2019-10-04] MEDS ORDERED: MIDAZOLAM HCL 1 MG/ML 2ML VIAL ONE (18:22)
[2019-10-04] MEDS ORDERED: BUPIVACAINE/PF 0.25% 30ML VIAL IJ ONE (19:07)
--- NOTE | 2019-10-04 19:55 | NUR ---
Received report patient is in surgery,patient was refusing Covid and PCR tests
[2019-10-04] MEDS ORDERED: MEPERIDINE-PF 25 MG/ML SYG ONE (20:53)
--- NOTE | 2019-10-04 21:20 | NUR ---
Received pt via bed accompanied by RN patient had S/P Lap appendectomy with JEY in place.Pt is awake and complaining of abdominal pain.Pt is on clear liquid diet.
[2019-10-04] MEDS: LACTATED RINGERS 1000ML 1,000 ML IV SCH (21:39)
[2019-10-04] MEDS: HYDROCODONE/ACETAMINOPHEN 5/325 MG TAB PO PRN (21:41)
[2019-10-04] MEDS: INSULIN GLARGINE 100 UNITS/ML 10 ML VIAL SQ SCH (21:43)
[2019-10-05] VITALS (7 sets, daily range): BP systolic 119–149; BP diastolic 65–82
[2019-10-05] MEDS: MORPHINE SULFATE 2 MG/ML 1ML SYG IV PRN (01:58)
[2019-10-05 04:03] LABS: HEMATOCRIT 34.5 % (42-54); MEAN CORPUSCULAR HEMOGLOBIN 27.6 pg (27.0-33.0); MEAN CORPUSCULAR HGB CONC 31.9 g/dL (32.0-36.0); MEAN CORPUSCULAR VOLUME 86.5 fL (79-99); PLATELET COUNT (AUTO) 518 K/uL (130-400); RED BLOOD CELL COUNT(AUTO) 3.99 MIL/uL (4.50-6.20); RED CELL DISTRIBUTION WIDTH 13.8 % (11.0-15.5); WHITE BLOOD COUNT (AUTO) 20.6 K/uL (4.8-10.8)
[2019-10-05 04:17] LABS: BILIRUBIN,TOTAL 0.5 mg/dL (0.2-1.0); CREATININE 0.9 mg/dL (0.5-1.5); POTASSIUM 4.8 mmol/L (3.5-5.1)
[2019-10-05 04:23] LABS: BAND NEUTROPHILS % (MANUAL) 2 % (0-2); LYMPHOCYTES % (MANUAL) 1 % (22-44); MONOCYTES % (MANUAL) 1 % (2-9); SEGMENTED NEUTROPHILS % 96 % (40-70)
[2019-10-05 04:24] LABS: MAN.DIFF COMMENT-IMPRESSION MANUAL DIFFERENTIAL; PLATELET MORPHOLOGY COMMENT INCREASED
[2019-10-05] MEDS: MEROPENEM 1 GM VIAL IVP SCH ×3 (05:56→20:56)
[2019-10-05] MEDS: HYDROCODONE/ACETAMINOPHEN 5/325 MG TAB PO PRN ×2 (05:57→20:55)
[2019-10-05] MEDS: INSULIN LISPRO 100 UNIT/ML 3ML SQ SCH ×7 (06:43→21:00)
--- NOTE | 2019-10-05 08:00 | NUR ---
JEY Site is oozing and old dressing saturated with blood,dressing change done and observed aseptic technique entire procedure and patient tolerated well.
[2019-10-05] MEDS: ASPIRIN 81 MG EC TAB PO SCH (08:15)
[2019-10-05] MEDS: METOPROLOL TARTRATE 25 MG TAB PO SCH ×2 (08:15→20:55)
[2019-10-05] MEDS: FAMOTIDINE 20MG TAB 20 MG TAB PO SCH (08:15)
[2019-10-05] MEDS: DOCUSATE SODIUM 100 MG CAP PO SCH ×2 (08:16→20:56)
[2019-10-05] MEDS: LACTATED RINGERS 1000ML 1,000 ML IV SCH ×3 (09:12→21:01)
--- NOTE | 2019-10-05 12:43 | NUR ---
CM Note: Cancelled [facility], dcp to home CM met with pt and sister, discussed and updated POC. As of now, pt declined placement, prefers to go back home, sister verbalized they can follow up w/pcp for possible home health PT at home. Requested to cancel referral to [facility]. Pt and sister aware pending Dr Kaminski's recs for abx on dc, hoping to have PO on dc. Dc plan to home. Primary nurse aware. CM to cont to follow up. CM spoke to Nyla w/[facility], cancelled referral as per pt and sister's request at this time.
--- NOTE | 2019-10-05 14:26 | NUR ---
DR. Ridge HENRY IN ROOM SPEAKING WITH PT. AND PT.'S SPOUSE AT BEDSIDE RE:PLAN OF CARE. QUESTIONS ANSWERED BY DR. HENRY.
[2019-10-06 03:48] VITALS: BP 143/70
[2019-10-06 04:22] LABS: BASOPHILS % (AUTO) 0.3 % (0.0-5.0); HEMATOCRIT 29.8 % (42-54); LYMPHOCYTES % (AUTO) 6.1 % (21.0-51.0); MEAN CORPUSCULAR HEMOGLOBIN 26.8 pg (27.0-33.0); MEAN CORPUSCULAR HGB CONC 31.9 g/dL (32.0-36.0); MEAN CORPUSCULAR VOLUME 84.2 fL (79-99); MONOCYTES % (AUTO) 5.7 % (3.0-13.0); NEUTROPHILS % (AUTO) 87.2 % (40.0-77.0); PLATELET COUNT (AUTO) 485 K/uL (130-400); RED BLOOD CELL COUNT(AUTO) 3.54 MIL/uL (4.50-6.20)
[2019-10-06 04:34] LABS: CREATININE 0.7 mg/dL (0.5-1.5); POTASSIUM 4.5 mmol/L (3.5-5.1)
[2019-10-06] MEDS: MEROPENEM 1 GM VIAL IVP SCH ×3 (05:47→20:38)
[2019-10-06] MEDS: INSULIN LISPRO 100 UNIT/ML 3ML SQ SCH ×7 (05:50→20:37)
[2019-10-06 07:00] VITALS: BP 151/68
[2019-10-06] MEDS: DOCUSATE SODIUM 100 MG CAP PO SCH ×2 (09:00→20:38)
[2019-10-06] MEDS: FAMOTIDINE 20MG TAB 20 MG TAB PO SCH (09:50)
[2019-10-06] MEDS: ASPIRIN 81 MG EC TAB PO SCH (09:50)
[2019-10-06] MEDS: METOPROLOL TARTRATE 25 MG TAB PO SCH ×2 (09:50→20:38)
[2019-10-06 11:00] VITALS: BP 126/65
[2019-10-06] MEDS: LACTATED RINGERS 1000ML 1,000 ML IV SCH (11:05)
[2019-10-06 16:00] VITALS: BP 147/64
[2019-10-06 19:57] VITALS: BP 148/72
[2019-10-06 23:35] VITALS: BP 162/78
[2019-10-07] MEDS: MORPHINE SULFATE 2 MG/ML 1ML SYG IV PRN (01:27)
[2019-10-07] MEDS: LACTATED RINGERS 1000ML 1,000 ML IV SCH ×2 (01:29→14:32)
[2019-10-07 03:39] VITALS: BP 164/71
[2019-10-07] MEDS: MEROPENEM 1 GM VIAL IVP SCH ×3 (04:32→20:18)
[2019-10-07] MEDS: INSULIN LISPRO 100 UNIT/ML 3ML SQ SCH ×7 (06:00→21:00)
[2019-10-07 06:07] LABS: BASOPHILS % (AUTO) 0.4 % (0.0-5.0); EOSINOPHILS % (AUTO) 0.1 % (0.0-8.0); HEMATOCRIT 28.8 % (42-54); LYMPHOCYTES % (AUTO) 7.3 % (21.0-51.0); MEAN CORPUSCULAR HEMOGLOBIN 26.7 pg (27.0-33.0); MEAN CORPUSCULAR HGB CONC 31.9 g/dL (32.0-36.0); MEAN CORPUSCULAR VOLUME 83.7 fL (79-99); MONOCYTES % (AUTO) 5.7 % (3.0-13.0); PLATELET COUNT (AUTO) 412 K/uL (130-400); RED BLOOD CELL COUNT(AUTO) 3.44 MIL/uL (4.50-6.20); RED CELL DISTRIBUTION WIDTH 14.1 % (11.0-15.5); WHITE BLOOD COUNT (AUTO) 17.1 K/uL (4.8-10.8)
[2019-10-07 06:21] LABS: CREATININE 0.8 mg/dL (0.5-1.5); POTASSIUM 4.5 mmol/L (3.5-5.1)
[2019-10-07 08:00] VITALS: BP 136/69
[2019-10-07] MEDS: METOPROLOL TARTRATE 25 MG TAB PO SCH ×2 (08:22→20:18)
[2019-10-07] MEDS: FAMOTIDINE 20MG TAB 20 MG TAB PO SCH (08:22)
[2019-10-07] MEDS: ASPIRIN 81 MG EC TAB PO SCH (08:22)
[2019-10-07] MEDS: DOCUSATE SODIUM 100 MG CAP PO SCH ×2 (08:25→20:18)
[2019-10-07 11:00] VITALS: BP 144/69
[2019-10-07 16:00] VITALS: BP 149/70
--- NOTE | 2019-10-07 18:38 | NUR ---
EAM DONE AT 0725. Addendum: 10/07/19 at 1839 by OTILIA NEWTON RN RN Amended: Links added.
[2019-10-07 19:51] VITALS: BP 163/78
[2019-10-07 23:53] VITALS: BP 155/83
--- NOTE | 2019-10-08 | NUR ---
PT HAS FLAT AFFECT. ENCOURAGED TO SIT UP, DO IS, EAT FOOD, AND PT SHRUGGED AND WENT BACK TO SLEEPING. HE STATES HE WANTS TO GO HOME. ATTEMPTED TO LIFT PT SPIRITS UP, BUT PT FELL ASLEEP.
[2019-10-08 04:02] VITALS: BP 154/82
[2019-10-08] MEDS: MEROPENEM 1 GM VIAL IVP SCH ×3 (04:54→20:49)
[2019-10-08] MEDS: LACTATED RINGERS 1000ML 1,000 ML IV SCH ×3 (04:59→20:50)
[2019-10-08] MEDS: INSULIN LISPRO 100 UNIT/ML 3ML SQ SCH ×7 (05:41→20:56)
[2019-10-08 07:15] VITALS: BP 155/77
[2019-10-08] MEDS: FAMOTIDINE 20MG TAB 20 MG TAB PO SCH (08:43)
[2019-10-08] MEDS: METOPROLOL TARTRATE 25 MG TAB PO SCH ×2 (08:43→20:49)
[2019-10-08] MEDS: ASPIRIN 81 MG EC TAB PO SCH (08:43)
[2019-10-08] MEDS: DOCUSATE SODIUM 100 MG CAP PO SCH ×2 (08:44→20:49)
[2019-10-08 11:30] VITALS: BP 149/71
[2019-10-08 15:30] VITALS: BP 164/88
[2019-10-08 20:40] VITALS: BP 150/64
[2019-10-09] VITALS (7 sets, daily range): BP systolic 137–187; BP diastolic 55–93
[2019-10-09] MEDS: MEROPENEM 1 GM VIAL IVP SCH ×3 (04:06→20:21)
--- NOTE | 2019-10-09 04:29 | NUR ---
SLEPT Pt slept fairly well.Denies pain or discomfort.
[2019-10-09] MEDS: INSULIN LISPRO 100 UNIT/ML 3ML SQ SCH ×7 (06:16→21:00)
[2019-10-09] MEDS: FAMOTIDINE 20MG TAB 20 MG TAB PO SCH (09:34)
[2019-10-09] MEDS: ASPIRIN 81 MG EC TAB PO SCH (09:34)
[2019-10-09] MEDS: METOPROLOL TARTRATE 25 MG TAB PO SCH ×2 (09:34→20:21)
[2019-10-09] MEDS: DOCUSATE SODIUM 100 MG CAP PO SCH ×2 (09:34→20:21)
[2019-10-09] MEDS: LACTATED RINGERS 1000ML 1,000 ML IV SCH (11:19)
[2019-10-09 11:54] LABS: INR 0.99 (0.85-1.15); PROTHROMBIN TIME 10.7 SEC (9.6-11.6)
--- NOTE | 2019-10-09 12:30 | NUR ---
PICC LINE PATIENT SIGNED CONSENT FOR PICC LINE PLACEMENT. PT AND INR RESULTED. CAMPAIGN DEVELOPER MADE AWARE THAT PATIENT IS READY FOR PICC LINE INSERTION. SHE STATED SHE WILL NOTIFY PICC LINE NURSE.
--- NOTE | 2019-10-09 14:15 | NUR ---
ORDER RECD FOR [facility]- DISCUSSED W PATIENT AT 1130 PATIENT REQUEST TO DISCUSS TRANSPORT WITH SISTER- SANDHYA STATES [facility] ATTEMPTED X 3 TO GET SISTER SANDHYA [phone] ON THE LINE- NO ANSWER. LEFT MESSAGE FOR CALL BACK PACKET JESSICA, [facility] LINE, FAXED X 2 TO [facility], CALL X 2 TO U, NO ANSWER, LEFT MESSAGE FOR CALL BACK Addendum: 10/09/19 at 1418 by ANA CHOU RN CM Amended: Links added.
--- NOTE | 2019-10-09 14:20 | NUR ---
EXPECTING DISPO TOHOME WITH [facility] AND SAME SERVICES. PT DECLINED PLACEMENT WAITING TO SPEAK TO SISTER TO CONFIRM Addendum: 10/09/19 at 1421 by ANA CHOU RN CM Amended: Links added. Addendum: 10/09/19 at 1421 by ANA CHOU RN CM * WAITING CALL BACK FROM SISTER *
--- NOTE | 2019-10-09 19:55 | NUR ---
PICC LINE PLACED TO RT UPPER ARM, 5 FR DUAL LUMEN. CXR DONE . PT GOING TO [facility] NEED A CXR .
[2019-10-10] VITALS: BP 137/62
--- NOTE | 2019-10-10 02:40 | NUR ---
AFEBRILE Pt afebrile,denies pain or discomfort.Slept fairly.
[2019-10-10 04:00] VITALS: BP 146/60
[2019-10-10] MEDS: MEROPENEM 1 GM VIAL IVP SCH ×2 (04:06→12:15)
[2019-10-10] MEDS: INSULIN LISPRO 100 UNIT/ML 3ML SQ SCH ×6 (05:45→17:00)
[2019-10-10 08:30] VITALS: BP 160/69
[2019-10-10] MEDS: DOCUSATE SODIUM 100 MG CAP PO SCH (08:36)
[2019-10-10] MEDS: FAMOTIDINE 20MG TAB 20 MG TAB PO SCH (08:36)
[2019-10-10] MEDS: METOPROLOL TARTRATE 25 MG TAB PO SCH (08:36)
[2019-10-10] MEDS: ASPIRIN 81 MG EC TAB PO SCH (08:36)
--- NOTE | 2019-10-10 09:11 | NUR ---
FAXED X 3 THE PICC LINE INFO TO [facility]- DID NOT GO THROUGH. CALL TO [facility] FAX, TRYING AGAIN NOTE_ SPOKE TO SISTER SANDHYA MORRISONMALIA AFTERNOON, IN AGREEMENT WITH PLAN, WILL COME AN PHONOGRAPH NEEDLE TIP MAKER INFO WHEN APPROVED-- TO GO REGISTER PATIENT
[2019-10-10] MEDS: LACTATED RINGERS 1000ML 1,000 ML IV SCH (09:12)
[2019-10-10 11:56] VITALS: BP 150/69
[2019-10-10 12:32] LABS: HEMATOCRIT 26.4 % (42-54); MEAN CORPUSCULAR HEMOGLOBIN 27.1 pg (27.0-33.0); MEAN CORPUSCULAR HGB CONC 32.2 g/dL (32.0-36.0); MEAN CORPUSCULAR VOLUME 84.1 fL (79-99); RED BLOOD CELL COUNT(AUTO) 3.14 MIL/uL (4.50-6.20); RED CELL DISTRIBUTION WIDTH 13.7 % (11.0-15.5); WHITE BLOOD COUNT (AUTO) 9.5 K/uL (4.8-10.8)
[2019-10-10 14:05] LABS: CREATININE 0.7 mg/dL (0.5-1.5); POTASSIUM 4.3 mmol/L (3.5-5.1)
[2019-10-10 14:14] LABS: ALBUMIN 1.8 g/dL (3.5-5.0); BILIRUBIN,TOTAL 0.5 mg/dL (0.2-1.0); TOTAL PROTEIN, SERUM 5.9 g/dL (6.0-8.3)
--- NOTE | 2019-10-10 15:10 | NUR ---
RD FOLLOW UP Pt tolerating GI Soft/[place], 75gm CCD as per Pt. Pt reports good appetite with Fair PO intake (75%). Pt with no report of GI distress. Pt is s/p [employer] Basilio. Recommend continue current diet order. RD to continue to monitor. Please notify as additional nutrition concerns arise. Thank you. Addendum: 10/10/19 at [address] Amended: Links added.
[2019-10-10 16:30] VITALS: BP 137/68
[2019-10-10] MEDS: MORPHINE SULFATE 2 MG/ML 1ML SYG IV PRN (18:49)
--- NOTE | 2019-10-10 19:00 | NUR ---
DISCHARGE PATIENT SIGNED DISCHARGE PAPERWORK AT THIS TIME. JEY DRAIN REMOVED. PATIENT IN PAIN, GIVEN 2MG OF MORPHINE BEFORE DISCHARGE. DR. HIRSCH NOTIFIED THAT PATIENT REQUIRING PAIN MEDS AND STATED IT WAS OKAY TO GIVE 2MG OF MORPHINE BEFORE DISCHARGE. RIGHT ARM PICC LINE REMAINED IN PLACE, NEEDED FOR ANTIBIOTIC TREATMENT. PATIENT VERBALIZED UNDERSTANDING OF ALL DISCHARGE INSTRUCTIONS. NO QUESTION AT THIS TIME. PATIENT TAKEN VIA WHEELCHAIR TO ER FOR DISCHARGE AT 1900.
== END 2019-10-10 19:03 | disposition home or self-care (01) | DRG 853 ==
LOC: EDH 15:01 → 4BH 19:00 → EDHIP 20:31 → 4BH 20:31 → UNDOADMIN 20:31 → 4BH 09-21 01:05 → 2DH 09-21 01:05 → EDHIP 09-21 01:05 → 4BH 09-21 11:11 → 2DH 09-21 11:11
PROVIDERS: ADMIT Internal Medicine; ATTEND Internal Medicine
PROC: 0FT44ZZ Resection of Gallbladder, Percutaneous Endoscopic Approach (ICD-10-PCS; 2019-10-04)
PROC: 02HV33Z Insertion of Infusion Device into Superior Vena Cava, Percutaneous Approach (ICD-10-PCS; principal; 2019-10-09)
DX: A41.50 Gram-negative sepsis, unspecified (principal); K75.0 Abscess of liver; J18.9 Pneumonia, unspecified organism; K81.0 Acute cholecystitis; E87.1 Hypo-osmolality and hyponatremia; J98.11 Atelectasis; N39.0 Urinary tract infection, site not specified; Z16.24 Resistance to multiple antibiotics; E11.65 Type 2 diabetes mellitus with hyperglycemia; B96.20 Unspecified Escherichia coli [E. coli] as the cause of diseases classified elsewhere; D50.9 Iron deficiency anemia, unspecified; E11.51 Type 2 diabetes mellitus with diabetic peripheral angiopathy without gangrene; E66.9 Obesity, unspecified; E87.6 Hypokalemia; E87.8 Other disorders of electrolyte and fluid balance, not elsewhere classified; F17.200 Nicotine dependence, unspecified, uncomplicated; I10 Essential (primary) hypertension; I25.10 Atherosclerotic heart disease of native coronary artery without angina pectoris; K21.9 Gastro-esophageal reflux disease without esophagitis; K59.00 Constipation, unspecified; K66.0 Peritoneal adhesions (postprocedural) (postinfection); K76.0 Fatty (change of) liver, not elsewhere classified; K82.8 Other specified diseases of gallbladder; Z03.818 Encounter for observation for suspected exposure to other biological agents ruled out; Z78.9 Other specified health status; Z83.3 Family history of diabetes mellitus; Z89.511 Acquired absence of right leg below knee; Z89.512 Acquired absence of left leg below knee
CPT/HCPCS: 36415; 71045; 71250; 74178; 78227; 80048; 80053; 80061; 80076; 81001; 82010; 82550; 82728; 82947; 82948; 83036; 83605; 83615; 83690; 83735; 83874; 83880; 84100; 84145; 84443; 84484; 85025; 85027; 85610; 85651; 85730; 86140; 86757; 87040; 87070; 87076; 87077; 87186; 87205; 87486; 87581; 87633; 87798; 87804; 88304; 88342; 93005; 93306; 93356; 97039; 99291; A9537; C1894; G0378; J0456; J0696; J1815; J2001; J2175; J2185; J2250; J2405; J2543; J2704; J3010; J3230; J3490; J7030; J7070; J7120; Q9963; Q9967

== ENCOUNTER → 2020-01-26 | Outpatient (CLI) | payer OTHER | END | disposition home or self-care (01) | LOC: SHCH 08:57 | PROVIDERS: ATTEND Internal Medicine Cardiovascular Disease | DX: I08.0 Rheumatic disorders of both mitral and aortic valves (principal); I65.23 Occlusion and stenosis of bilateral carotid arteries | CPT/HCPCS: 93306; 93356; 93880 ==

== ENCOUNTER → 2020-01-29 | Outpatient (CLI) | payer OTHER ==
[~2020-01-29] MED LIST: REGADENOSON 0.4 MG/5 ML PF SYG IVP SCH
== END | disposition home or self-care (01) ==
LOC: SHCH 08:42
PROVIDERS: ATTEND Internal Medicine Cardiovascular Disease
DX: I20.9 Angina pectoris, unspecified (principal); R07.9 Chest pain, unspecified
CPT/HCPCS: 78452; 93017; 96374; A9500 ×2; J2785

== ENCOUNTER → 2020-07-10 | Outpatient (CLI) | payer OTHER | END | disposition home or self-care (01) | LOC: WHH 08:00 | PROVIDERS: ATTEND Podiatrist Foot & Ankle Surgery | DX: E11.621 Type 2 diabetes mellitus with foot ulcer (principal); L97.522 Non-pressure chronic ulcer of other part of left foot with fat layer exposed; I10 Essential (primary) hypertension; E11.42 Type 2 diabetes mellitus with diabetic polyneuropathy; I25.10 Atherosclerotic heart disease of native coronary artery without angina pectoris; I08.0 Rheumatic disorders of both mitral and aortic valves; E78.2 Mixed hyperlipidemia; Z86.73 Personal history of transient ischemic attack (TIA), and cerebral infarction without residual deficits; Z89.512 Acquired absence of left leg below knee | CPT/HCPCS: G0463 ==

== ENCOUNTER 2020-08-12 08:25 | Observation (INO) | payer OTHER ==
[2020-08-08 16:53] LABS: APPEARANCE,URINE Clear (CLEAR); BILIRUBIN,URINE Negative (NEGATIVE); COLOR,URINE Yellow (YELLOW); GLUCOSE, URINE (UA) Negative (NEGATIVE); KETONES,URINE Negative (NEGATIVE); LEUKOCYTE ESTERASE ,URINE Trace (NEGATIVE); NITRATE,URINE Negative (NEGATIVE); OCCULT BLOOD,URINE Negative (NEGATIVE); PROTEIN,URINE POS 2+ mg/dL (NEGATIVE)
[2020-08-08 17:00] LABS: BASOPHILS % (AUTO) 0.8 % (0.0-5.0); HEMATOCRIT 34.4 % (42-54); LYMPHOCYTES % (AUTO) 16.6 % (21.0-51.0); MEAN CORPUSCULAR HEMOGLOBIN 28.7 pg (27.0-33.0); MEAN CORPUSCULAR HGB CONC 32.6 g/dL (32.0-36.0); MEAN CORPUSCULAR VOLUME 88.2 fL (79-99); NEUTROPHILS % (AUTO) 74.1 % (40.0-77.0); PLATELET COUNT (AUTO) 353 K/uL (130-400); RED CELL DISTRIBUTION WIDTH 13.2 % (11.0-15.5); WHITE BLOOD COUNT (AUTO) 13.2 K/uL (4.8-10.8)
[2020-08-08 17:03] LABS: POTASSIUM 4.3 mmol/L (3.5-5.1)
[2020-08-08 17:06] LABS: INR 1.05 (0.85-1.15); PROTHROMBIN TIME 11.4 SEC (9.6-11.6)
[2020-08-08 17:06] LABS: BACTERIA,URINE Few /HPF (None Seen); MUCUS,URINE Few LPF (None Seen); SQUAMOUS EPITHELIAL CELL,UR Few /HPF (0-2)
[2020-08-08 17:07] LABS: PARTIAL THROMBOPLASTIN TIME 28.8 SEC (26.3-35.5)
[2020-08-09 13:29] VITALS: BP 136/54
[2020-08-12] VITALS (24 sets, daily range): BP systolic 132–164; BP diastolic 58–76
[~2020-08-12] VITALS: Ht 185.4 cm; Wt 70.8 kg
[~2020-08-12 08:25] MED LIST changes: +AEC81 PO; +AMLO-257 PO; +ATOR10 PO; +CLIN75CA2 PO; +GLIP5TAB11 PO; +MULT-1333 PO; -REGADENOSON 0.4 MG/5 ML PF SYG IVP SCH; +SITA100T12 PO
[2020-08-12] MEDS ORDERED: SODIUM CHLORIDE 0.9% 1000ML 1,000 ML IV ONE (08:30)
[2020-08-12 08:52] LABS: BASOPHILS % (AUTO) 0.6 % (0.0-5.0); EOSINOPHILS % (AUTO) 1.4 % (0.0-8.0); HEMATOCRIT 32.9 % (42-54); LYMPHOCYTES % (AUTO) 16.7 % (21.0-51.0); MEAN CORPUSCULAR HEMOGLOBIN 28.7 pg (27.0-33.0); MEAN CORPUSCULAR HGB CONC 33.1 g/dL (32.0-36.0); MEAN CORPUSCULAR VOLUME 86.6 fL (79-99); MONOCYTES % (AUTO) 6.1 % (3.0-13.0); NEUTROPHILS % (AUTO) 74.6 % (40.0-77.0); PLATELET COUNT (AUTO) 338 K/uL (130-400); RED CELL DISTRIBUTION WIDTH 13.1 % (11.0-15.5); WHITE BLOOD COUNT (AUTO) 12.7 K/uL (4.8-10.8)
[2020-08-12] MEDS ORDERED: FENTANYL CITRATE PF 50 MCG/1 ML 2ML VIAL ONE (10:52)
[2020-08-12] MEDS ORDERED: NITROGLYCERIN 2 MG/VIAL VIAL IV ONE (10:52)
[2020-08-12] MEDS ORDERED: LIDOCAINE HCL 2% 20ML ONE (10:52)
[2020-08-12] MEDS ORDERED: IODIXANOL 320 MG/ML 100 ML VIAL ONE (10:52)
[2020-08-12] MEDS ORDERED: MIDAZOLAM HCL 1 MG/ML 2ML VIAL ONE (10:52)
[2020-08-12] MEDS ORDERED: HEPARIN SODIUM 1000UNIT/ML 10ML VIAL ONE (10:52)
[2020-08-12] MEDS ORDERED: ASPIRIN 81MG TAB.CHEW ONE (12:51)
[2020-08-12] MEDS ORDERED: CLOPIDOGREL BISULFATE 300 MG TAB ONE (12:51)
[2020-08-12] MEDS ORDERED: HYDRALAZINE HCL 20 MG/ML VIAL IV PRN (13:00)
[2020-08-12] MEDS ORDERED: SODIUM CHLORIDE 0.9% 1000ML 1,000 ML IV SCH (13:00)
[2020-08-12] MEDS ORDERED: DEXTROSE 50%-WATER 50 ML DISP.SYRIN IV PRN (13:00)
[2020-08-12] MEDS ORDERED: GLUCAGON 1MG KIT 1 MG ML IM PRN (13:00)
[2020-08-12] MEDS ORDERED: METOPROLOL TARTRATE 1 MG/ML 5ML VIAL IV PRN (13:00)
[2020-08-12] MEDS ORDERED: NITROGLYCERIN 0.4 MG SL TAB SL PRN (13:00)
[2020-08-12] MEDS ORDERED: CLINDAMYCIN HCL PO SCH (13:15)
[2020-08-12] MEDS: PHARMACY COMMUNICATION MISC SCH ×2 (13:30→19:30)
[2020-08-12] MEDS ORDERED: ATROPINE SULFATE 0.1 MG/ML 10 ML SYG IVP ONE (13:38)
[2020-08-12] MEDS: INSULIN HUMULIN R 100 UNIT/ML 3ML SQ SCH ×2 (16:30→21:00)
[2020-08-12] MEDS ORDERED: ATORVASTATIN CALCIUM 10 MG TABLET PO SCH (21:00)
[2020-08-13] MEDS: PHARMACY COMMUNICATION MISC SCH ×2 (01:30→08:39)
[2020-08-13 04:00] VITALS: BP 150/67
[2020-08-13] MEDS: INSULIN HUMULIN R 100 UNIT/ML 3ML SQ SCH ×2 (07:30→11:30)
[2020-08-13 07:58] VITALS: BP 149/63
[2020-08-13] MEDS ORDERED: CLOP75TA14 PO (08:18)
[2020-08-13] MEDS ORDERED: MULTIVITAMIN TABLET PO SCH (09:00)
[2020-08-13] MEDS ORDERED: ASPIRIN 81 MG EC TAB PO SCH (09:00)
[2020-08-13] MEDS ORDERED: GLIPIZIDE 5 MG TABLET PO SCH (09:00)
[2020-08-13] MEDS ORDERED: AMLODIPINE BESYLATE 5 MG TAB PO SCH (09:00)
[2020-08-13] MEDS ORDERED: CLOPIDOGREL BISULFATE 75 MG TAB PO SCH (09:00)
[2020-08-13] MEDS ORDERED: LINAGLIPTIN 5 MG TABLET PO SCH ×2 (09:00)
== END 2020-08-13 11:50 | disposition home or self-care (01) ==
LOC: DAH 08:25 → DAHIP 08:26 → 3DH 16:05
PROVIDERS: ADMIT Internal Medicine Cardiovascular Disease; ATTEND Internal Medicine Cardiovascular Disease
DX: E11.51 Type 2 diabetes mellitus with diabetic peripheral angiopathy without gangrene (principal); E11.621 Type 2 diabetes mellitus with foot ulcer; L97.529 Non-pressure chronic ulcer of other part of left foot with unspecified severity; I10 Essential (primary) hypertension; E78.5 Hyperlipidemia, unspecified; I25.10 Atherosclerotic heart disease of native coronary artery without angina pectoris; I35.1 Nonrheumatic aortic (valve) insufficiency; I65.21 Occlusion and stenosis of right carotid artery; F32.9 Major depressive disorder, single episode, unspecified; Z86.73 Personal history of transient ischemic attack (TIA), and cerebral infarction without residual deficits; Z99.3 Dependence on wheelchair; Z89.511 Acquired absence of right leg below knee; Z90.49 Acquired absence of other specified parts of digestive tract; Z79.4 Long term (current) use of insulin; Z79.82 Long term (current) use of aspirin; Z79.899 Other long term (current) drug therapy; Z88.1 Allergy status to other antibiotic agents; Z88.8 Allergy status to other drugs, medicaments and biological substances
CPT/HCPCS: 36415 ×2; 37221; 37224; 71045; 75630; 80048; 81001; 82948 ×4; 85025 ×2; 85610; 85730; 93005; 96360; 96361; A4215; A4216; A4221; A4222; A4223 ×3; A4606; A4615; A4663; A6260; A6402; C1725; C1769; C1876; C1893; C1894 ×2; C2623; G0378 ×23; J1644 ×2; J2250; J3010; J3490 ×2; J7030 ×2; Q9967; 37220; 99152; 99153; 99156; 99157; J0461

== ENCOUNTER → 2022-07-23 | Outpatient (CLI) | payer OTHER | END | disposition home or self-care (01) | LOC: SHCH 09:28 | PROVIDERS: ATTEND Internal Medicine Cardiovascular Disease | DX: I74.5 Embolism and thrombosis of iliac artery (principal); I70.203 Unspecified atherosclerosis of native arteries of extremities, bilateral legs; E11.51 Type 2 diabetes mellitus with diabetic peripheral angiopathy without gangrene | CPT/HCPCS: 93925; 93978 ==

== ENCOUNTER → 2023-02-17 | Outpatient (CLI) | payer OTHER, MEDICARE ==
[~2023-02-17] MED LIST changes: -GLIP5TAB11 PO; +GLIP5TAB15 PO
[2023-02-17 11:41] LABS: CREATININE 0.9 mg/dL (0.5-1.5); POTASSIUM 3.6 mmol/L (3.5-5.1)
== END | disposition home or self-care (01) ==
LOC: LAB 10:25
PROVIDERS: ATTEND Internal Medicine Cardiovascular Disease
DX: I25.10 Atherosclerotic heart disease of native coronary artery without angina pectoris (principal)
CPT/HCPCS: 36415; 80048

== ENCOUNTER → 2023-02-22 | Outpatient (CLI) | payer OTHER, MEDICARE ==
[~2023-02-22] MED LIST changes: +IOHEXOL 350 MG/ML 100ML INFUS..BTL IV ONE; +IOHEXOL-350 50ML VIAL IV ONE
== END | disposition home or self-care (01) ==
LOC: RAH 09:35 → EDSTATUS 10:00
PROVIDERS: ATTEND Internal Medicine Cardiovascular Disease
DX: I70.0 Atherosclerosis of aorta (principal); I25.10 Atherosclerotic heart disease of native coronary artery without angina pectoris
CPT/HCPCS: 75635; Q9967 ×2